=== PATIENT | male | born 2000 | race Caucasian/White ===

== ENCOUNTER 2020-02-21 16:16 | Emergency (ER) | payer BC, SELFPAY ==
--- NOTE | ~2020-02-21 | XR_ITS ---
EXAMINATION: XR chest 2V DATE: 02/21/2020 17:03 INDICATION: Midsternal chest pain. Epigastric pain and lightheadedness. TECHNIQUE: frontal and lateral views of the chest were obtained. COMPARISON: None FINDINGS: The lungs are clear with no focal airspace opacities, pulmonary edema, pleural effusion or pneumothor ax. The cardiomediastinal silhouette is normal. Visualized bones and soft tissues are unremarkable. IMPRESSION: 1. No acute cardiopulmonary disease. Reviewed, dictated and finalized at location A.
[2020-02-21 16:22] VITALS: BP 152/75; PULSE 101; RESP 27; TEMP 37.1; O2SAT 100
--- NOTE | 2020-02-21 16:30 | ECG_ITS ---
Measurements Intervals [place] Rate: 104 P: 83 [place]: 183 QRS: 105 QRSD: 113 T: 68 QT: 343 QTc: 453 Interpretive Statements SINUS TACHYCARDIA RIGHT AXIS DEVIATION INCOMPLETE RIGHT BUNDLE BRANCH BLOCK BASELINE ARTIFACT- I, II, III, AVR, AVL, AVF, V5-V6 ABNORMAL ECG Electronically Signed On 02-21-2020 17:32:17 CDT by Kar Gilbert D.O.
[2020-02-21 16:49] VITALS: PULSE 110; O2SAT 99
[2020-02-21 16:49] LABS: Basophils Absolute Auto 0.1 K/mm3 (0.0-0.1); Basophils Percent Auto 1.3 % (0.2-1.2); Eosinophils Absolute Auto 0.1 K/mm3 (0-0.3); Eosinophils Percent Auto 1.5 % (0-4.4); Hematocrit 45.3 % (42.0-52.0); Hemoglobin 16.2 g/dL (14.0-18.0); Immature Granulocyte Absolute 0.01 K/mm3 (0.00-0.031); Immature Granulocyte Percent A 0.2 % (0-0.5); Lymphocytes Absolute Auto 2.52 K/mm3 (0.9-3.2); Mean Corpuscular HGB Conc 35.8 g/dl (32-36); Mean Corpuscular Volume 89.5 fl (80-100); Monocytes Absolute Auto 0.7 K/mm3 (0.1-0.6); Monocytes Percent Auto 11.2 % (2.6-8.5); Neutrophils Absolute Auto 2.8 K/mm3 (1.3-6.7); Neutrophils Percent Auto 44.8 % (45.5-73.1); Platelet Count Result 320 k/mm3 (150-375); Red Blood Count 5.06 M/mm3 (4.6-6.20); Red Cell Distribution Width 12.7 % (11.5-14.5); White Blood Count 6.1 K/mm3 (4.5-10.0)
[2020-02-21 17:02] LABS: Blood Urea Nitrogen 20 mg/dL (8-21); Calcium 10.1 mg/dL (8.9-10.7); Carbon Dioxide 23 mmol/L (22-30); Chloride 101 mmol/L (98-107); Estimated CRCL calculation 116 ml/min; Estimated Glomerular Filt Rate > 60; Glucose 103 mg/dL (75-110); Potassium 4.2 mmol/L (3.4-5.0); Sodium 136 mmol/L (134-143)
[2020-02-21 17:13] LABS: Troponin I < 0.012 ng/mL (0.000-0.034)
[2020-02-21] MEDS: LORAZEPAM INJ 2 MG/ML VIAL 0.5 MG IV PUSH (17:25)
--- NOTE | 2020-02-21 17:26 | ED.CHESTPAIN ---
HPI - Chest Pain General Chief Complaint: Chest Pain Stated Complaint: Chest discomfort; extremity tingling Time Seen by Provider: 02/21/20 17:07 History of Present Illness HPI narrative: Patient is a 19-year-old male who presents ER with shortness of breath. Associated with tightness in his chest and back. He is also having tingling in his hands/feet/mouth. He is having spasming of his hands bilaterally. Came on all of a sudden while in a car. Denies any drug use. Reports that his aunt yesterday and his girlfriend is going through some issues so there is some stress. No history of panic attacks or other mental health issues. Reports sister with severe anxiety but no other mental health issues within the family. Related Data Allergies Allergy/AdvReac Type Severity Reaction Status Date / Time No Known Allergies Allergy Verified 02/21/20 16:29 Review of Systems Review of Systems: All systems reviewed & are unremarkable except as noted in HPI and below Constitutional: Constitutional: Denies chills, Denies fever(s) and Denies weakness ENT: Denies nasal congestion and Denies sore throat Cardiovascular: Cardiovascular: Reports chest pain, Reports rapid heart rate and Denies radiating jaw, neck or arm pain Respiratory: Respiratory: Denies cough, Reports dyspnea and Denies wheezing Gastrointestinal: Gastrointestinal: Denies abdominal pain, Denies diarrhea, Denies nausea and Denies vomiting Musculoskeletal: Musculoskeletal: Denies arthralgias, Denies joint swelling and Reports muscle cramps Neurologic: Denies dizziness, Denies syncope, Denies focal weakness and Reports numbness Psychiatric: Psychiatric: Reports anxiety and Denies depression PMFSH Past Medical History Medical History (Updated 02/21/20 @ 18:09 by Juan M Mcleod MD) No pertinent past medical history Surgical History Surgical History (Updated 02/21/20 @ 18:04 by Juan M Mcleod MD) No pertinent past surgical history Social History Social History (Updated 02/21/20 @ 18:04 by Juan M Mcleod MD) Smoking status: Never smoker Alcohol use details: Occasional social drinking. Substance use type: marijuana Last use: 1 week ago Exam Narrative: Exam Narrative: GENERAL: Well-appearing, well-nourished, and in no acute distress. HEAD: Normocephalic, atraumatic. ENT: Mucous membranes moist. NECK: Supple. CHEST: Clear to auscultation. No respiratory distress. HEART: Regular rate and rhythm. Normal peripheral pulses. ABDOMEN: Soft, nontender, nondistended. EXTREMITIES: Normal range of motion of upper and lower extremities with exception of carpal spasm bilaterally. No edema. SKIN: Warm, dry, no rash. NEURO: Alert and oriented x3. Course Course Emergency Course: Patient feels much better after receiving Ativan. He is moving his hands much better. Feels comfortable with discharge. Vital Signs Vital signs: Vital Signs Temperature 98.8 F 02/21/20 16:22 Pulse Rate 101 H 02/21/20 16:22 Respiratory Rate 27 H 02/21/20 16:22 Blood Pressure 152/75 H 02/21/20 16:22 Pulse Oximetry 100 02/21/20 16:22 Temperature 98.8 F 02/21/20 16:22 Pulse Rate 91 02/21/20 17:30 Respiratory Rate 27 H 02/21/20 16:22 Blood Pressure 152/75 H 02/21/20 16:22 Pulse Oximetry 99 02/21/20 16:49 MDM - Chest Pain Lab Data Result diagrams: 02/21/20 16:34 02/21/20 16:34 Labs: Lab Results 02/21/20 02/21/20 02/21/20 Range/Units 16:34 16:34 17:37 WBC 6.1 (4.5-10.0) K/mm3 RBC 5.06 (4.6-6.20) M/mm3 Hgb 16.2 (14.0-18.0) g/dL Hct 45.3 (42.0-52.0) % MCV 89.5 (80-100) fl MCH 32.0 (26-34) pg MCHC 35.8 (32-36) g/dl RDW 12.7 (11.5-14.5) % Plt Count 320 (150-375) k/mm3 MPV 10.0 (7.4-10.4) fl Immature Gran % (Auto) 0.2 (0-0.5) % Neut % (Auto) 44.8 L (45.5-73.1) % Lymph % (Auto) 41.0 (18.3-44.2) % [place] % (Auto) 11.2 H (2.6-8.5)
[2020-02-21 17:30] VITALS: BP 146/57; PULSE 82; PULSE 91; RESP 14; O2SAT 100
[2020-02-21 17:54] LABS: D Dimer < 0.22 ug/mL (<0.48)
[2020-02-21 18:30] VITALS: BP 125/64; PULSE 65; RESP 12; O2SAT 99
== END 2020-02-21 18:42 | disposition home or self-care (01) ==
PROVIDERS: Emergency Provider Emergency Medicine
DX: F41.9 Anxiety disorder, unspecified (principal); R00.0 Tachycardia, unspecified; I45.10 Unspecified right bundle-branch block; R94.31 Abnormal electrocardiogram [ECG] [EKG]
CPT/HCPCS: 36415; 71046; 80048; 84484; 85025; 85380; 93005; 96374; 99284; J2060